=== PATIENT | male | born 1950 | race Caucasian/White ===

== ENCOUNTER → 2019-09-20 | Outpatient (CLI) | payer BC ==
--- NOTE | 2019-09-20 14:19 | KCIC ---
EXAM: Right foot, 3 views. HISTORY: Pain. COMPARISON: None. FINDINGS: 3 views of the right foot are obtained. There is first metatarsal phalangeal joint space narrowing with subchondral sclerosis and marginal spurring. There is no acute fracture, dislocation or subluxation. There is a tiny plantar spur. There are vascular calcifications. IMPRESSION: 1. Moderate first metatarsophalangeal joint osteoarthritis. 2. Tiny plantar spur. Electronically signed by: Jaylin Cai MD (09/20/2019 2:16 PM) [facility]
== END | disposition home or self-care (01) ==
LOC: KCIC 13:41
PROVIDERS: ATTEND Family Medicine
DX: M19.071 Primary osteoarthritis, right ankle and foot (principal); M77.51 Other enthesopathy of right foot and ankle; M25.871 Other specified joint disorders, right ankle and foot
CPT/HCPCS: 73630